=== PATIENT | female | born 1940 | race Caucasian/White ===

== ENCOUNTER 2023-05-03 07:08 | Day surgery (SDC) | payer MEDICARE ==
[2023-05-02 14:59] VITALS: BMI 26.4
[~2023-05-03 07:08] MED LIST: EPINEPHrine 0.3 MG in Ophthalmic Irrigation Solution 500 ML IRR SCH
[2023-05-03] MEDS ORDERED: Cyclopentolate 1% Opth Drop 2 ML BOT ONE (07:33)
[2023-05-03] MEDS ORDERED: PHENYLephrine 2.5% Ophth Soln 15 ml Bottle ONE (07:33)
[2023-05-03] MEDS ORDERED: Lidocaine 1% PF 5 ML VIAL ONE (09:02)
[2023-05-03] MEDS ORDERED: Indocyanine Green 25 MG/10 ML VIAL ONE (09:02)
[2023-05-03] MEDS ORDERED: PROPOFOL 200 MG/20 ML VIAL ONE (09:02)
[2023-05-03] MEDS ORDERED: Lidocaine 4% PF 5 ML AMP ONE (09:02)
[2023-05-03] MEDS ORDERED: Maxitrol 0.1% Opth Oint 3.5 GM TUBE ONE (09:02)
[2023-05-03] MEDS ORDERED: Triamcinolone 40 MG/ML VIAL ONE (09:02)
[2023-05-03] MEDS ORDERED: CEFAZOLIN 1 GM VIAL ONE (09:02)
[2023-05-03] MEDS ORDERED: Bupivacaine 0.75% 10 ML VIAL ONE (09:02)
[2023-05-03] MEDS ORDERED: Midazolam HCl 2 mg/2 ml Vial ONE (09:49)
== END 2023-05-03 11:00 | disposition home or self-care (01) ==
LOC: SDC 07:08
PROVIDERS: ATTEND Ophthalmology Retina Specialist
PROC: 08T53ZZ Resection of Left Vitreous, Percutaneous Approach (ICD-10-PCS; principal; 2023-05-03)
DX: H35.342 Macular cyst, hole, or pseudohole, left eye (principal)
CPT/HCPCS: 67025; J0171; J0690; J2250; J2704; J3301; J3490

== ENCOUNTER 2023-05-17 10:30 | Outpatient (CLI) | payer MEDICARE ==
[2023-05-17 12:53] LABS: #Monocytes 0.3 10x3/uL (0.0-1.1); #Neutrophils 3.8 10x3/uL (1.5-8.4); %Basophils 0.5 % (0.0-2.0); %Eosinophils 0.7 % (0.0-6.0); %Lymphocytes 31.3 % (18.0-47.0); %Monocytes 5.4 % (0.0-10.0); %Neutrophils 61.9 % (40.0-75.0); Hematocrit 43.7 % (34.9-44.5); Mean Corpuscular Hemoglobin 30.5 pg (27.0-33.0); Mean Corpuscular Volume 95.2 fl (81.6-98.3); Mean Platelet Volume 9.1 fl (7.4-10.4); Platelet Count 193 10x3/uL (150-450); RBC Distribution Width 14.2 % (11.5-14.5); Red Blood Cell (RBC) Count 4.59 10x6/uL (3.90-5.03); White Blood Cell (WBC) Count 6.1 10x3/uL (3.5-10.5)
[2023-05-17 13:29] LABS: INR-International Normal Ratio 0.9; Prothrombin Time 9.8 sec (9.5-12.1)
[2023-05-17 13:33] LABS: Anion Gap 18 mmol/L (10-20); BUN (Urea Nitrogen) 23 mg/dL (9.8-20.1); Calc. Creatinine Clearance 0 mL/min (70-130); Calcium 9.3 mg/dL (7.8-10.44); Carbon Dioxide 23 mmol/L (23-31); Chloride 106 mmol/L (98-107); Estimated GFR 70; Glucose 88 mg/dL (83-110); Potassium 4.6 mmol/L (3.5-5.1); Sodium 142 mmol/L (136-145)
== END 2023-05-17 10:31 | disposition home or self-care (01) ==
LOC: LABBT 10:30
PROVIDERS: ATTEND Orthopaedic Surgery
DX: Z01.818 Encounter for other preprocedural examination (principal); M17.11 Unilateral primary osteoarthritis, right knee
CPT/HCPCS: 80048; 85025; 85610; 87081; 93005; 93010